=== PATIENT | female | born 1960 | race Caucasian/White ===

== ENCOUNTER → 2020-11-22 | Outpatient (CLI) | payer OTHER ==
[~2020-11-22] MED LIST: ASPIRIN CHEWABL81 MG PO; IBU800 MG PO
== END ==
LOC: KOH-I 14:45
DX: M25.532 Pain in left wrist (principal)
CPT/HCPCS: 73100

== ENCOUNTER 2020-11-25 11:19 | Emergency (ER) | payer OTHER ==
[~2020-11-25 11:19] MED LIST changes: -IBU800 MG PO
[2020-11-25] MEDS ORDERED: IBU800 MG PO (12:10)
== END 2020-11-25 12:50 | disposition home or self-care (01) ==
LOC: ER1 11:19
DX: S62.002A Unspecified fracture of navicular [scaphoid] bone of left wrist, initial encounter for closed fracture (principal); I11.9 Hypertensive heart disease without heart failure; E03.9 Hypothyroidism, unspecified; Z88.2 Allergy status to sulfonamides; W19.XXXA Unspecified fall, initial encounter; Y92.002 Bathroom of unspecified non-institutional (private) residence as the place of occurrence of the external cause
CPT/HCPCS: 29125; 96372; 99283; J2270; J2405

== ENCOUNTER → 2021-01-27 | Outpatient (CLI) | payer OTHER ==
[~2021-01-27] MED LIST changes: +IBU800 MG PO
== END ==
LOC: KOH-I 09:07
DX: M54.5 Low back pain (principal); M47.816 Spondylosis without myelopathy or radiculopathy, lumbar region
CPT/HCPCS: 72110

== ENCOUNTER → 2021-02-09 | Outpatient (CLI) | payer OTHER | LOC: KOH-I 02-07 08:00 | DX: M47.817 Spondylosis without myelopathy or radiculopathy, lumbosacral region (principal); K83.8 Other specified diseases of biliary tract; M51.36 Other intervertebral disc degeneration, lumbar region; M48.061 Spinal stenosis, lumbar region without neurogenic claudication; M51.37 Other intervertebral disc degeneration, lumbosacral region; M48.07 Spinal stenosis, lumbosacral region | CPT/HCPCS: 72148 ==

== ENCOUNTER → 2021-02-22 | Outpatient (CLI) | payer OTHER | LOC: MRI 13:56 | DX: K83.8 Other specified diseases of biliary tract (principal) | CPT/HCPCS: 74181 ==

== ENCOUNTER → 2021-08-03 | Outpatient (CLI) | payer OTHER | LOC: RAD 07:31 | DX: R11.0 Nausea (principal); K59.00 Constipation, unspecified | CPT/HCPCS: 74250 ==

== ENCOUNTER → 2021-08-22 | Outpatient (CLI) | payer OTHER | LOC: KOH-I 10:24 | DX: M54.50 Low back pain, unspecified (principal); M47.816 Spondylosis without myelopathy or radiculopathy, lumbar region | CPT/HCPCS: 72100 ==

== ENCOUNTER → 2022-01-11 | Outpatient (CLI) | payer OTHER | LOC: KOH-I 15:41 | DX: M25.572 Pain in left ankle and joints of left foot (principal) | CPT/HCPCS: 73610; 73630 ==